=== PATIENT | female | born 1995 | race African-American/Black ===

== ENCOUNTER 2017-09-16 20:45 | Observation (INO) | payer OTHER ==
[~2017-09-16] VITALS: Ht 162.6 cm; Wt 93.9 kg
[~2017-09-16 20:45] MED LIST: NO MEDS
[2017-09-16 22:24] VITALS: BP 114/66
[2017-09-16] MEDS ORDERED: FERR-82 PO (22:32)
== END 2017-09-16 22:05 | disposition home or self-care (01) ==
LOC: 4S 20:45
PROVIDERS: ADMIT Obstetrics & Gynecology; ATTEND Obstetrics & Gynecology
DX: O36.8130 Decreased fetal movements, third trimester, not applicable or unspecified (principal); O26.893 Other specified pregnancy related conditions, third trimester; M54.5 Low back pain; Z3A.33 33 weeks gestation of pregnancy
CPT/HCPCS: 59025; 80307 ×8; G0378